=== PATIENT | female | born 1970 | race Caucasian/White ===

== ENCOUNTER 2018-01-03 17:55 | Emergency (ER) | payer OTHER ==
[~2018-01-03] VITALS: Ht 170.2 cm; Wt 94.8 kg
[~2018-01-03 17:55] MED LIST: ACETAMINOPHEN-1 EAC1 PO; CYCLOBENZAPRINE10 MG PO; EFFEXOR XR37.5 MG PO; HYDROCODON-ACE1 EA11 PO; IRON325 M1 PO; LEVOTHYROXINE25 MCG PO; LEVOTHYROXINE50 MCG PO; OXYCODONE HCL5 MG PO; VENLAFAXINE H37.5 MG PO; VITAMIN C500 M1 PO; XARELTO10 MG PO
[2018-01-03] MEDS ORDERED: PERCOCET 5-3251 EACH PO (19:44)
[2018-01-03] MEDS ORDERED: FLOMAX0.4 MG PO (19:44)
== END 2018-01-03 20:03 | disposition home or self-care (01) ==
LOC: ED 17:55
DX: N13.2 Hydronephrosis with renal and ureteral calculous obstruction (principal); E03.9 Hypothyroidism, unspecified; F41.9 Anxiety disorder, unspecified; Z88.2 Allergy status to sulfonamides; Z88.0 Allergy status to penicillin; Z79.899 Other long term (current) drug therapy
CPT/HCPCS: 74176; 80053; 81001; 85025; 96361; 96374; 96375; 99284; J1170; J2405; J7120

== ENCOUNTER 2019-03-31 09:00 | Day surgery (SDC) | payer OTHER ==
[~2019-03-31] VITALS: Ht 170.2 cm; Wt 81.7 kg
[~2019-03-31 09:00] MED LIST changes: +BIOTIN5000 MCG PO; +CITRACAL + D31 EACH PO; +CLEOCIN HCL300 MG PO; +FLINTSTONES WIT18 MG PO; +FLOMAX0.4 MG PO; +PERCOCET 5-3251 EACH PO; +PROBIOTIC1 EAC1 PO
[2019-03-31] MEDS ORDERED: NORCO 5-325 TA1 EACH PO (09:21)
--- NOTE | 2019-03-31 10:58 | NUR ---
03/31/19 Smith8 Angeline Gardner 1051-PATIENT ARRIVED TO PACU ON 10L MASK PLACED ON 6L RR EVEN. PATIENT AWAKE DROWSY DENIES PAIN OR NAUSEA. MOVING HANDS. IVF INFUSING. PATIENT DOZES BACK TO SLEEP. SR WITH PVCS.
--- NOTE | 2019-03-31 12:28 | OR ---
[facility] [address] [place], [place] [address] Signed DATE OF OPERATION: 03/31/2019 SURGEON: Galina Fontanez MD PREOPERATIVE DIAGNOSIS: Left gluteal abscess. POSTOPERATIVE DIAGNOSIS: Left gluteal abscess. PROCEDURE PERFORMED: 1. Exam under anesthesia. 2. Incision, drainage, left gluteal abscess. 3. Wound culture. ESTIMATED BLOOD LOSS: None. 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 She underwent her gastric sleeve procedure in 2018 with [facility]. She has lost about 90 pounds. She said she is feeling much better. The last 3-4 days, she has developed a painful lump to the left side of her anus out on the gluteal area. It has been increasing in size and pain and warmth. She went to her primary care provider. She was started on clindamycin and was asked to see me that same day. I had seen her yesterday in the office. It was very clear she had an area probably 3 cm maybe 4 cm in diameter that was quite indurated and warm and tender. No specific fluctuance at that point. I explained to Ginny, we needed to take her to the operating room the following day and we could examine her under anesthesia, particularly with respect to possible anal fistula. We have to open this skin and drain the abscess and take our wound cultures. It will be allowed to heal secondarily. She understands the nature of the surgery along with the risks including, but not limited to bleeding, infection, scarring, change in contour of the skin as well as recurrent abscesses in the same or other locations. She had expressed her understanding wished to proceed. DESCRIPTION OF PROCEDURE: I met with Ginny and her in our preop area. With our nurse in the room, then we were able to easily locate and agree on the abscessed area on the left gluteal buttock. There it was then marked appropriately. Ginny was then taken into the operating room Electronically Signed By: GALINA FONTANEZ MD 03/31/19 1228 PATIENT NAME: GINNY DEVLIN OPERATIVE REPORT DATE OF : 70 REPORT #: [id number] PHYSICIAN: GALINA FONTANEZ MD PCP: SHAHANA GOULD REPORT IS CONFIDENTIAL AND NOT TO BE RELEASED WITHOUT AUTHORIZATION [facility] [address] [place], [place] [address] Signed and placed under general endotracheal tube anesthesia in the prone gretchen-knife position. Appropriate padding and monitoring were placed. She was given preop antibiotics along with subcutaneous heparin. SCDs were utilized. She was then prepped and draped in the usual sterile fashion. We then did a careful digital rectal exam and I could not appreciate any extension of the abscess toward the anal canal, specifically the anterior posterior of midline. A Half-keys retractor was used to very carefully examined the full circumference of the dentate line and again, particularly the posterior and anterior midline. We applied pressure and no palpable fissure was noted, nor any pus around the dentate line. We felt this was all in the soft tissue out lateral to the anus at around the 3 o'clock position. After this, an elliptical incision was made in the skin and completely removed and sent off to the Pathology Department. Underneath was several mL of pus. This was cultured and passed off the field. The wound did tract somewhat laterally, so we opened that with a Pean clamp until the entire area was opened and all the pus was evacuated. The wound was irrigated and suctioned out until clear. Hemostasis was easily achieved with the cautery. Local anesthetic was copiously injected into the wound. We then packed the wound with a 4 x 4 Dakin's soaked gauze. This was covered with dry ABD and mesh underwear. Ginny was then rotated into the supine position on her hospital bed, awakened from her anesthesia, extubated in the OR, and taken to recovery room in stable condition. Galina Fontanez MD ALB/MODL /[id number] cc: TRISH Nguyễn MD Copies: SHAHANA GOULD ANDREW L MD ~ Electronically Signed By: GALINA FONTANEZ MD 03/31/19 1228 PATIENT NAME: GINNY DEVLIN OPERATIVE REPORT DATE OF : 70 REPORT #: [id number] PHYSICIAN: GALINA FONTANEZ MD PCP: SHAHANA GOULD REPORT IS CONFIDENTIAL AND NOT TO BE RELEASED WITHOUT AUTHORIZATION
--- NOTE | 2019-03-31 13:17 | NUR ---
LASHELL 1240: PT HAS MET ALL DC CRITERIA. SHE WOULD LIKE TO GO HOME AT THIS TIME. PT AND ARE GIVEN VERBAL DC INSTRUCTIONS. THEY BOTH VERBALIZE UNDERSTANDING. QUESTIONS ARE ASKED AND ANSWERED. PT IS EDUCATED ON HOW BEST TO DRESS HERSELF.
--- NOTE | 2019-03-31 13:19 | NUR ---
LE 1250: PT IS TAKE TO THE VEHICLE VIA WHEELCHAIR. SHE TRANSFERS HERSELF FROM WC TO VEHICLE.
--- NOTE | 2019-04-01 12:56 | PATH ---
[facility] [address] [place], [place] [address] Signed SPECIMEN(S): A GLUTEAL SPECIMEN SOURCE: A. GLUTEAL CLINICAL HISTORY: Left gluteal abscess. FINAL PATHOLOGIC DIAGNOSIS: Skin and subcutaneous tissue, left gluteal region, excision: - Dermal/subcutaneous abscess. COMMENT: There is an entrapped piece of benign squamous mucosa. The lesion her may possibly represent a ruptured epidermal inclusion cyst with abscess formation. LJA:cml:C2NR MICROSCOPIC EXAMINATION: Histologic sections of all submitted blocks are examined by light microscopy. These findings, together with the gross examination, support the pathologic diagnosis. GROSS DESCRIPTION: The specimen, labeled "TH, skin from left gluteal abscess," is received in formalin and consists of a 2.5 x 1.5 x 1.0 cm unoriented skin excision. The epidermis is barron-pink and unremarkable. Sectioning shows barron-yellow cut surfaces with focal areas of hemorrhage and a 0.8 cm hemorrhagic cyst in the subcutaneous tissue. No other discrete lesion is identified. [employer] Server sections are submitted in cassette (A1). AR (under the direct supervision of a pathologist) The Gross Description was prepared using a voice recognition system. The report was reviewed for accuracy; however, sound-alike word errors, addition and/or deletions may occur. If there is any question about this report, please contact Client Services. PERFORMING LABORATORY: The technical component was performed by [employer], [address] [place] [address] (Loan Servicing Officer: Jany Braswell MD; CLIA# [id number]). [facility], [address] [facility], [place]. 107, PATIENT NAME: MADHU DEVLIN PATHOLOGY DATE OF : 70 REPORT #: [id number] PHYSICIAN: OPAL PATHOLOGY PCP: SHAHANA GOULD REPORT IS CONFIDENTIAL AND NOT TO BE RELEASED WITHOUT AUTHORIZATION [facility] [address] [place], [place] [address] Signed [place] [address] (Loan Servicing Officer: Omari Mares MD; CLIA# [id number]). Diagnostician: Omari Mares MD Pathologist Electronically Signed 04/01/2019 Copies: ~ PATIENT NAME: MADHU DEVLIN PATHOLOGY DATE OF : 70 REPORT #: [id number] PHYSICIAN: OPAL PATHOLOGY PCP: SHAHANA GOULD REPORT IS CONFIDENTIAL AND NOT TO BE RELEASED WITHOUT AUTHORIZATION
== END 2019-03-31 12:50 | disposition home or self-care (01) ==
LOC: DS 09:00 → OPS 09:00 → DS 12:00 → OPS 12:50
PROVIDERS: Colon & Rectal Surgery
PROC: 0J990ZZ Drainage of Buttock Subcutaneous Tissue and Fascia, Open Approach (ICD-10-PCS; principal; 2019-03-31 12:00)
DX: L02.31 Cutaneous abscess of buttock (principal); E03.9 Hypothyroidism, unspecified; D50.9 Iron deficiency anemia, unspecified; Z88.0 Allergy status to penicillin; Z88.2 Allergy status to sulfonamides; Z79.899 Other long term (current) drug therapy; Z98.84 Bariatric surgery status
CPT/HCPCS: 00400; J0330; J1100; J1644; J1885; J2250; J2405; J2704; J2765; J3010; J7120

== ENCOUNTER 2021-07-30 11:52 | Day surgery (SDC) | payer OTHER ==
[~2021-07-30] VITALS: Ht 170.2 cm; Wt 80.0 kg
[~2021-07-30 11:52] MED LIST changes: +EUTHYROX100 MCG PO; +NORCO 5-325 TA1 EACH PO; +TRIPLE HELIX CO10 GM TOP
--- NOTE | 2021-07-30 13:45 | NUR ---
07/30/21 1344 Loyda Bob 1343 PATIENT ARRIVES TO PACU AWAKE. DENIES PAIN OR NAUSEA. RESP EVEN AND UNLABORED, NC AT 2 LITERS, TURNED OFF ON ARRIVAL TO PACU.
--- NOTE | 2021-07-31 14:44 | OR ---
[facility] [facility] [address] [place], [place] [address] Signed DATE OF OPERATION: 07/30/2021 SURGEON: Mika Lamb MD PREOPERATIVE DIAGNOSIS: History of gastric sleeve resection ([facility], Dr. Froilan Larkin). POSTOPERATIVE DIAGNOSES: 1. Typical anatomy of gastric sleeve resection. 2. Pre-pyloric small ulcer; CLOtest, currently asymptomatic. PROCEDURE: Esophagogastroduodenoscopy with biopsy. ANESTHESIA: Intravenous sedation; fentanyl 100 mcg and Versed 5 mg. INDICATION: This 51-year-old white woman is a patient of Shahana Tom and underwent gastric sleeve resection as a bariatric method at [facility] 3 years ago. She went from 288 pounds to 185 pounds and maintains that weight loss. She is generally symptom free. She was recommended to undergo surveillance upper endoscopy by her surgeon, Dr. Froilan Larkin and that is the purpose for her evaluation at this time. I am familiar with the patient from the past having performed left saphenous vein stab phlebectomy in 2003 as well as cholecystectomy in 1995. She is admitted at this time to undergo upper endoscopy as surveillance regarding the sleeve resection, understands the risks of bleeding, infection, and perforation. FINDINGS: Typical gastric sleeve resection anatomy was noted with a tubular-appearing stomach overall. The esophagus appeared entirely normal. There was a small hiatal hernia, but no resultant esophagitis. The duodenum was normal. There was a small pre-pyloric ulcer, very shallow and not very large. Biopsies were taken of it and surrounding tissue and CLOtest biopsy also performed (currently negative). DESCRIPTION OF PROCEDURE: The patient was brought to the endoscopy suite, given topical lidocaine hypopharyngeal spray anesthesia. She was placed in lateral decubitus position, given intravenous sedation to a point of slurred speech and nystagmus with full cardiopulmonary Electronically Signed By: MIKA LAMB MD 07/31/21 1444 PATIENT NAME: MADHU DEVLIN OPERATIVE REPORT DATE OF : 70 REPORT #: [id number] PHYSICIAN: MIKA LAMB MD PCP: SHAHANA TOM REPORT IS CONFIDENTIAL AND NOT TO BE RELEASED WITHOUT AUTHORIZATION [facility] [address] [place], [place] [address] Signed monitoring. A bite block was placed. An Olympus video upper endoscope was passed in the hypopharynx. Vocal cords were visualized and found to be normal. The scope was easily passed into the esophagus and throughout its length, it was normal. Scope entered stomach and typical anatomy of a gastric sleeve resection was noted including a tubular-shaped stomach. Upon approaching the pylorus, there was a small white-based ulcer that was not very deep at all. The pylorus itself was not deformed. Scope was passed through the pylorus into the duodenum. The bulbar 2nd 3rd and 4th portions were normal. Biopsies were taken of the distal duodenum to assess for celiac disease. The scope was withdrawn and biopsies then taken of the ulcer itself in the pre-pyloric region as well as several other biopsies in the pre-pyloric antrum. CLOtest biopsies were taken as well. The scope was withdrawn and retroflex view showed a somewhat poor flap valve suggestive of small hiatal hernia. The scope was straightened withdrawn and biopsies were taken of the normal-appearing mucosa of the esophagus. Midesophageal biopsies were also obtained. The scope was further withdrawn. There were no other findings of concern. The patient was taken to recovery room in good condition. CONCLUDING DIAGNOSES: 1. Clinically successful gastric sleeve resection. 2. Small pre-pyloric ulceration, asymptomatic. PLAN: We will treat with PPI medication for 8 weeks and evaluate the patient in a few weeks as well. We will be watching to assure there is no H. pylori associated with the biopsies or the CLOtest as it evolves. MD CAROLE Kessler/TIARRAL /[id number] cc: Dr. Froilan Larkin [facility] TRISH Nguyễn Electronically Signed By: MIKA LAMB MD 07/31/21 1444 PATIENT NAME: MADHU DEVLIN OPERATIVE REPORT DATE OF : 70 REPORT #: [id number] PHYSICIAN: MIKA LAMB MD PCP: SHAHANA TOM REPORT IS CONFIDENTIAL AND NOT TO BE RELEASED WITHOUT AUTHORIZATION [facility] [address] [place], [place] [address] Signed Copies: SHAHANA TOM ~ Electronically Signed By: MIKA LAMB MD 07/31/21 1444 PATIENT NAME: MADHU DEVLIN OPERATIVE REPORT DATE OF : 70 REPORT #: [id number] PHYSICIAN: MIKA LAMB MD PCP: SHAHANA TOM REPORT IS CONFIDENTIAL AND NOT TO BE RELEASED WITHOUT AUTHORIZATION
--- NOTE | 2021-08-01 14:27 | PATH ---
[facility] [place] [facility] [address] [place], [place] [address] Signed SPECIMEN(S): A DISTAL DUODENAL BIOPSY SPECIMEN(S): B PROXIMAL ANTRUM/PYLORUS BIOPSY ULCER SPECIMEN(S): C ANTRUM/PYLORUS BIOPSY SPECIMEN(S): D DISTAL ESOPHAGEAL BIOPSY SPECIMEN(S): E MID ESOPHAGEAL BIOPSY SPECIMEN SOURCE: A. DISTAL DUODENAL BIOPSY B. PROXIMAL ANTRUM/PYLORUS BIOPSY ULCER C. ANTRUM/PYLORUS BIOPSY D. DISTAL ESOPHAGEAL BIOPSY E. MID ESOPHAGEAL BIOPSY CLINICAL HISTORY: No preop or clinical information is given on requisition. FINAL PATHOLOGIC DIAGNOSIS: A. Duodenum, distal, biopsy: - Duodenal mucosa with no histopathologic abnormality. - Negative for increased intraepithelial lymphocytes or villous blunting. - Negative for dysplasia or malignancy. B. Stomach, proximal antrum/pylorus ulcer, biopsy: - Antral mucosa with reactive gastropathy and chronic, active gastritis. - Negative for Helicobacter organisms on HE stain, see Comment. - Negative for dysplasia or malignancy. C. Antrum/pylorus, biopsy: - Antral mucosa with chronic, focally active gastritis. - Negative for Helicobacter organisms on HE stain. - Negative for dysplasia or malignancy. D. Distal esophagus, biopsy: - Squamous mucosa with mild reactive changes. - Negative for intestinal metaplasia, dysplasia, or malignancy. E. Esophagus, mid, biopsy: - Squamous mucosa with no histopathologic abnormality. - Negative for increased intraepithelial eosinophils. - Negative for intestinal metaplasia, dysplasia or malignancy. COMMENT: An H. pylori immunohistochemical stain (with appropriately staining controls) has been ordered on the proximal antral/pylorus stomach biopsy (specimen B) and the results will be reported in an PATIENT NAME: GINNY DEVLIN PATHOLOGY DATE OF : 70 REPORT #: [id number] PHYSICIAN: OPAL COHN PCP: SHAHANA GOULD REPORT IS CONFIDENTIAL AND NOT TO BE RELEASED WITHOUT AUTHORIZATION [facility] [place] [facility] [address] [place], [place] [address] Signed addendum. NAL:cml:C2NR MICROSCOPIC EXAMINATION: Histologic sections of all submitted blocks are examined by light microscopy. These findings, together with the gross examination, support the pathologic diagnosis. GROSS DESCRIPTION: Five specimens are received in five containers, labeled "Ginny Devlin." A. The specimen, labeled "Ginny Devlin, #1," and designated on the requisition "distal duodenum biopsy," is received in formalin and consists of two barron soft tissue fragments that measure 0.3 and 0.4 cm in greatest dimension. The specimen is entirely submitted in cassette (A1). B. The specimen, labeled "Ginny Devlin, #2," and designated on the requisition "proximal antrum/pylorus ulcer biopsy," is received in formalin and consists of one barron soft tissue fragment that measures 0.4 cm in greatest dimension. The specimen is entirely submitted in cassette (B1). C. The specimen, labeled "Ginny Devlin, #3," and designated on the requisition "antrum/pylorus biopsy," is received in formalin and consists of three barron soft tissue fragments that measure 0.2 to 0.4 cm in greatest dimension. The specimen is entirely submitted in cassette (C1). D. The specimen, labeled "Ginny Devlin, #4," and designated on the requisition "distal esophagus biopsy," is received in formalin and consists of two white-barron soft tissue fragments that measure 0.2 and 0.3 cm in greatest dimension. The specimen is entirely submitted in cassette (D1). E. The specimen, labeled "Ginny Devlin, #5," and designated on the requisition "mid esophagus biopsy," is received in formalin and consists of two white-barron soft tissue fragments that measure 0.3 and 0.3 cm in greatest dimension. The specimen is entirely submitted in cassette (E1). FB (under the direct supervision of a pathologist) The Gross Description was prepared using a voice recognition system. The report was reviewed for accuracy; however, sound-alike word errors, addition and/or deletions may occur. If there is any question about this report, please contact Client Services. PATIENT NAME: GINNY DEVLIN PATHOLOGY DATE OF : 70 REPORT #: [id number] PHYSICIAN: OPAL COHN PCP: SHAHANA GOULD REPORT IS CONFIDENTIAL AND NOT TO BE RELEASED WITHOUT AUTHORIZATION [facility] [place] [facility] [address] [place] [id number] Signed PERFORMING LABORATORY: The technical component was performed by [employer], [address] [place] [id number] (Geriatric Care Manager: Jany Braswell MD; CLIA# [id number]). Professional interpretation was performed by [employer], [facility], [address] [address] (CLIA# [id number]). Diagnostician: Kerri Monreal MD Pathologist Electronically Signed 08/01/2021 Copies: ~ PATIENT NAME: GINNY DEVLIN PATHOLOGY DATE OF : 70 REPORT #: [id number] PHYSICIAN: OPAL PATHOLOGY PCP: SHAHANA GOULD REPORT IS CONFIDENTIAL AND NOT TO BE RELEASED WITHOUT AUTHORIZATION
== END 2021-07-30 18:00 | disposition home or self-care (01) ==
LOC: OPS 11:52 → DS 11:54 → OPS 13:00 → DS 13:00 → OPS 18:00
PROVIDERS: ATTEND Surgery
PROC: 0DB78ZZ Excision of Stomach, Pylorus, Via Natural or Artificial Opening Endoscopic (ICD-10-PCS; principal; 2021-07-30 13:00)
DX: Z09 Encounter for follow-up examination after completed treatment for conditions other than malignant neoplasm (principal); K25.9 Gastric ulcer, unspecified as acute or chronic, without hemorrhage or perforation; K29.50 Unspecified chronic gastritis without bleeding; K44.9 Diaphragmatic hernia without obstruction or gangrene; Z90.3 Acquired absence of stomach [part of]; Z96.651 Presence of right artificial knee joint
CPT/HCPCS: 99153; G0500; J2250; J3010; J7121

== ENCOUNTER 2022-01-14 06:29 | Day surgery (SDC) | payer OTHER ==
[~2022-01-14] VITALS: Ht 165.1 cm; Wt 80.5 kg
[2022-01-14] MEDS ORDERED: B COMPLEX1 EACH PO (06:44)
--- NOTE | 2022-01-17 08:03 | PATH ---
[facility] [address] [place], [place] [address] Signed SPECIMEN(S): A DUODENAL BIOPSY SPECIMEN(S): B ANTRUM/ANTRAL BIOPSY SPECIMEN(S): C PROXIMAL STOMACH BIOPSY SPECIMEN(S): D DISTAL ESOPHAGEAL BIOPSY SPECIMEN SOURCE: A. DUODENAL BIOPSY B. ANTRUM/ANTRAL BIOPSY C. PROXIMAL STOMACH BIOPSY D. DISTAL ESOPHAGEAL BIOPSY CLINICAL HISTORY: History of prepyloric ulcer. Postop diagnosis: Chronic gastritis FINAL PATHOLOGIC DIAGNOSIS: A. Duodenum, biopsy: - Duodenal mucosa with Lucy's glands hyperplasia. - Negative for increased intraepithelial lymphocytes or villous blunting. - Negative for dysplasia or malignancy. B. Stomach, antrum, biopsy: - Antral mucosa with chronic, focally active gastritis and reactive gastropathy. - Negative for Helicobacter organisms (HE and IHC). - Negative for dysplasia or malignancy. C. Stomach, proximal, biopsy: - Atrophic antral-type mucosa with chronic, active gastritis, intestinal metaplasia, and pancreatic acinar metaplasia, see comment. - Negative for Helicobacter organisms on HE stain. - Negative for dysplasia or malignancy. D. Esophagus, distal, biopsy: - Squamous mucosa with mild chronic inflammation and reactive epithelial changes. - Negative for intestinal metaplasia, dysplasia, or malignancy. COMMENT: Regarding specimen B: An H. pylori immunohistochemical stain (with appropriately staining controls) is negative for Helicobacter organisms. Regarding specimen C: Sections demonstrate gastric mucosa with antral type glands, focal complete intestinal metaplasia, and pancreatic acinar metaplasia. There is a background of chronic and acute inflammation. 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 Correlation with anti-parietal and anti-intrinsic factor antibodies as well as vitamin B12 levels is recommended. Part C of this case was reviewed in consultation with another member of our pathology staff. NAL:cml:C2NR MICROSCOPIC EXAMINATION: Histologic sections of all submitted blocks are examined by light microscopy. These findings, together with the gross examination, support the pathologic diagnosis. GROSS DESCRIPTION: Four specimens are received in four containers, labeled "TH." A. The specimen, labeled "TH, 1," and designated on the requisition "duodenum biopsy," is received in formalin and consists of two barron soft tissue fragments that measure 0.3 and 0.4 cm in greatest dimension. The specimen is entirely submitted in cassette (A1). B. The specimen, labeled "TH, 2," and designated on the requisition "antrum biopsy," is received in formalin and consists of two barron soft tissue fragments that measure 0.2 and 0.4 cm in greatest dimension. The specimen is entirely submitted in cassette (B1). C. The specimen, labeled "TH, 3," and designated on the requisition "proximal stomach biopsy," is received in formalin and consists of two red freckled barron soft tissue fragments that measure 0.2 and 0.3 cm in greatest dimension. The specimen is entirely submitted in cassette (C1). D. The specimen, labeled "TH, 4," and designated on the requisition "distal esophagus," is received in formalin and consists of one elongated, barron-white soft tissue fragment that measures 0.7 cm in greatest dimension. The specimen is entirely submitted in cassette (D1). AI (under the direct supervision of a pathologist) The Gross Description was prepared using a voice recognition system. The report was reviewed for accuracy; however, sound-alike word errors, addition and/or deletions may occur. If there is any question about this report, please contact Client Services. PERFORMING LABORATORY: The technical component was performed by [employer] [address] (CLIA# [id number]). [facility] PATIENT NAME: MADHU DEVLIN PATHOLOGY DATE OF : 70 REPORT #: [id number] PHYSICIAN: OPAL COHN PCP: SHAHANA GOULD REPORT IS CONFIDENTIAL AND NOT TO BE RELEASED WITHOUT AUTHORIZATION [facility] [address] [place], [place] [address] Signed [place], [address] [address] (CLIA# [id number]). Diagnostician: Kerri Monreal MD Pathologist Electronically Signed 01/17/2022 Copies: ~ PATIENT NAME: MADHU DEVLIN PATHOLOGY DATE OF : 70 REPORT #: [id number] PHYSICIAN: OPAL PATHOLOGY PCP: SHAHANA GOULD REPORT IS CONFIDENTIAL AND NOT TO BE RELEASED WITHOUT AUTHORIZATION
--- NOTE | 2022-01-18 14:15 | OR ---
[facility] [address], [place] [address] Signed DATE OF OPERATION: 01/14/2022 SURGEON: Mika Lamb MD PREOPERATIVE DIAGNOSES: 1. History of pre-pyloric ulcer, July of 2021. 2. History of bariatric procedure (gastric sleeve resection). POSTOPERATIVE DIAGNOSIS: Proximal gastritis without evidence of ulceration. PROCEDURE: Esophagogastroduodenoscopy with biopsy. ANESTHESIA: Intravenous sedation, fentanyl 100 mcg and Versed 4 mg. INDICATION: This 51-year-old white woman is a patient Dr. Shell Warren and TR[facility] Nguyễn and known to me from the past having undergone upper endoscopy in July of 2021 showing a pre-pyloric ulcer. This was shallow and not large. She has a history of gastric sleeve resection for obesity and has lost a considerable amount of weight from it. She has been on Prilosec for treatment. She has no symptoms of epigastric pain, dysphagia, hematemesis, or other issue and is doing quite well. Indeed, she is planning a vacation to [place] this coming week. She is here for evaluation of her stomach to assess resolution of the ulcer and other findings that may be found. She understands risk of bleeding, infection, and perforation and wished to proceed. FINDINGS: The ulcer was resolved. There was good patency to the GE junction and pylorus. There was mild proximal gastritis. CLOtest was negative. There were no other findings of concern. DESCRIPTION OF PROCEDURE: The patient was brought to the endoscopy suite and placed in lateral decubitus position, given intravenous sedation to the point of slurred speech and nystagmus after undergoing topical Hurricaine spray hypopharyngeal anesthesia. Ancef 2 g had been given prior to operation based on bilateral total knee replacement. A bite block was placed. An Olympus video upper endoscope was passed in the hypopharynx. The vocal cords appeared normal. Scope was advanced to the esophagus without problem, throughout its length it Electronically Signed By: MIKA LAMB MD 01/18/22 1415 PATIENT NAME: MADHU DEVLIN OPERATIVE REPORT DATE OF : 70 REPORT #: [id number] PHYSICIAN: MIKA LAMB MD PCP: SHAHANA GOULD REPORT IS CONFIDENTIAL AND NOT TO BE RELEASED WITHOUT AUTHORIZATION [facility] [address], [place] [address] Signed appeared normal. The scope was advanced to the stomach and a tubular appearing stomach was noted consistent with bariatric surgical operation anatomy (sleeve resection). The pylorus was normal. Scope was passed through into the duodenum, which was normal. Biopsies were taken of the duodenum. The scope was withdrawn and biopsies taken of the antral part of the stomach for both SONIA and pathologic testing. Further withdrawal and retroflexed view of the upper stomach showed mild chronic gastritis. There was no sign of ulceration or neoplasm. Biopsies were taken of the upper stomach. The scope was withdrawn and biopsy was then taken of the normal-appearing GE junction. The remaining esophagus was normal. Narrow band imaging showed no sign of worrisome lesion. The scope was removed and the patient was taken to the recovery room in good condition. It was verified that the patient continues to take Prilosec on a daily basis. Given the ongoing proximal gastritis, continued use of that would be recommended. ASSESSMENT: Proximal gastritis without sign of distal antral ulceration. No evidence of H pylori. PLAN: Continue PPI medication for the time being. She will return to the ongoing care of Dr. Warren and TR[facility] Nguy[facility]n. I am happy to see her again should the need arise. No scheduled plan will be maintained at this time. I will review her pathology report. If there are adverse findings, we will make that known to her. MD CAROLE Kessler/MONTSE /[id number] cc: MD Shahana Naik PA Copies: SHELL WARREN MD Electronically Signed By: MIKA LAMB MD 01/18/22 1415 PATIENT NAME: MADHU DEVLIN OPERATIVE REPORT DATE OF : 70 REPORT #: [id number] PHYSICIAN: MIKA LAMB MD PCP: SHAHANA GOULD REPORT IS CONFIDENTIAL AND NOT TO BE RELEASED WITHOUT AUTHORIZATION [facility] [address], [place] [address] Signed SHAHANA GOULD ~ Electronically Signed By: MIKA LAMB MD 01/18/22 1415 PATIENT NAME: MADHU DEVLIN OPERATIVE REPORT DATE OF : 70 REPORT #: [id number] PHYSICIAN: MIKA LAMB MD PCP: SHAHANA GOULD REPORT IS CONFIDENTIAL AND NOT TO BE RELEASED WITHOUT AUTHORIZATION
== END 2022-01-14 08:34 | disposition home or self-care (01) ==
LOC: OPS 06:29 → DS 06:29 → OPS 07:30
PROVIDERS: ATTEND Surgery
PROC: 0DB68ZX Excision of Stomach, Via Natural or Artificial Opening Endoscopic, Diagnostic (ICD-10-PCS; 2022-01-14)
PROC: 0DB58ZX Excision of Esophagus, Via Natural or Artificial Opening Endoscopic, Diagnostic (ICD-10-PCS; 2022-01-14)
PROC: 0DB98ZX Excision of Duodenum, Via Natural or Artificial Opening Endoscopic, Diagnostic (ICD-10-PCS; principal; 2022-01-14 07:30)
DX: K29.50 Unspecified chronic gastritis without bleeding (principal); K20.90 Esophagitis, unspecified without bleeding; E03.9 Hypothyroidism, unspecified; Z98.84 Bariatric surgery status; Z87.11 Personal history of peptic ulcer disease; Z88.0 Allergy status to penicillin; Z88.2 Allergy status to sulfonamides; Z90.49 Acquired absence of other specified parts of digestive tract
CPT/HCPCS: 99153; G0500; J0690; J2250; J3010; J7121

== ENCOUNTER 2023-02-04 08:17 | Day surgery (SDC) | payer OTHER ==
--- NOTE | 2023-02-03 08:13 | NUR ---
PHONE CALL TO PT REGARDING PHONE PRE ADMIT, NO ANSWER LEFT MESSAGE.
[~2023-02-04] VITALS: Ht 165.1 cm; Wt 84.1 kg
[~2023-02-04 08:17] MED LIST changes: +B COMPLEX1 EACH PO
[2023-02-04 08:44] VITALS: BP 134/86
--- NOTE | 2023-02-04 13:01 | NUR ---
02/04/23 1301 Angeline Gardner 5380-PATIENT ARRIVED TO PACU ON 6L MASK NONAROUSABLE RR EVEN. SR. IVF INFUSING. LEFT LEG ELEVATED ON PILLOWS AND ELEVATED ABOVE HEART. GOOD CAP REFILL WARMTH AND PALPABLE PEDAL PULSE. DRESSING CDI.
[2023-02-04] MEDS ORDERED: ACETAMINOPHEN500 MG PO (13:20)
[2023-02-04] MEDS ORDERED: OXYCODON-ACETA1 EAC2 PO (13:20)
[2023-02-04] MEDS ORDERED: IBUPROFEN600 MG PO (13:20)
[2023-02-04 13:42] VITALS: BP 138/79
--- NOTE | 2023-02-04 14:34 | NUR ---
LE 1335 PATIENT INTO ROOM 12. VITAL SIGNS COMPLETE. REPORT RECIEVED FROM URBANO EAGLE. PATIENT ALERT AND ORIENTED. BREATHING EQUAL AND UNLABORED. OXYGEN SATURATIONS ABOVE 90% ON ROOM AIR. PATIENT PAIN IS ABOUT A 4/10. PATIENT DENIES BEING NAUSEATED. CMST INTACT ON LLE. DRESSING CLEAN, DRY AND INTACT. IVF INFUSING. SCD'S ON. WATER AND JELLO GIVEN. CALL LIGHT WITHIN REACH NO FUTHER NEEDS. NO QUESTIONS. LE 1350 PATIENT UP TO THE COMMODE. PATIENT VOIDED 300 MLS OF CLEAR AND YELLOW URINE. PATIENT BACK TO BED. LLE ELEVATED WITH PILLOWS ABOVE THE HEART. SURGICAL DRESSING CLEAN, DRY AND INTACT. CALL LIGHT WITHIN REACH NO FUTHER NEEDS. NO QUESTIONS AT THIS TIME.
--- NOTE | 2023-02-04 14:39 | NUR ---
LE 1416 PRN PAIN MEDICINE GIVEN. CALL LIGHT WITHIN REACH NO FUTHER NEEDS. NO QUESTIONS AT THIS TIME.
[2023-02-04 14:46] VITALS: BP 125/83
--- NOTE | 2023-02-04 15:10 | NUR ---
LE 1500 PATIENT ALERT AND ORIENTED. BREATHING EQUAL AND UNLABORED. OXYGEN SATURATIONS ABOVE 90% ON ROOM AIR. PATIENT PAIN IS A 2/10 AND TOLERABLE. DENIES BEING NAUSEATED. CMST INTACT ON LLE. SURGICAL DRESSING CLEAN, DRY AND INTACT. PATIENT LLE ELEVATED ABOVE HEART. PATIENT HAS MET DISCHARGE CRITERIA. PATIENT DRESSED SELF IN BED. PATIENT IV D/C'D WNL. PATIENT GIVEN DISCHARGE INSTRUCTIONS AND UNDERSTOOD. PATIENT WHEELED OUT OF FACILITY TO CAR WITH MOTHER NO FUTHER NEEDS.
--- NOTE | 2023-02-05 15:26 | NUR ---
PT ASKS WHEN DRESSING CAN BE REMOVED DURING CALL BACK PHONE CALL. PER DR. LAMB'S INSTRUCTION, PT NOTIFIED TO KEEP IN PLACE UNTIL FOLLOW UP APPOINTMENT. PT STATES THAT FOLLOW UP IS ON FRIDAY AND ASKS IF SHE CAN PROTECT DRESSING WITH GARBAGE BAG AND SHOWER. PT ADVISED TO KEEP DRESSING CDI. NO OTHER QUESTIONS AT THIS TIME.
--- NOTE | 2023-02-06 18:00 | OR ---
[facility] [address] [place], [place] [address] Signed DATE OF OPERATION: 02/04/2023 SURGEON: Mika Lamb MD PREOPERATIVE DIAGNOSIS: Symptomatic left lesser saphenous vein varicosities. POSTOPERATIVE DIAGNOSIS: Symptomatic left lesser saphenous vein varicosities. PROCEDURE: Excision of left lesser saphenous vein varicosities by stab avulsion technique with subfascial ligation. ANESTHESIA: General, LMA; Javon Rodgers CRNA and 10 mL of 0.25% Marcaine with epinephrine. INDICATION: This 52-year-old white woman is a patient of TRISH Nguy[facility]n. She is known to me from the past having undergone right-sided varicose vein treatment a number of years ago in 2003. This was of the greater saphenous vein including some fascial ligation and excision in 2003. She has had a good and durable result. She has in the meantime developed extensive serpiginous lesser saphenous veins in the left posterior calf area consistent with lesser saphenous vein varicosities. She has no associated ulceration. Her vein diameter is at least 10 mm in most of the area. 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 She is aware of various approaches to the varicose vein management, but wishes to undergo that, which was satisfactory for her in the past including stab avulsion excision of the symptomatic varicose veins of the left lesser saphenous system. The risk of bleeding, infection, neurologic injury including numbness and of course recurrence were all reviewed in detail. She understands and wished to proceed. FINDINGS: Very bulky varicosities were noted. Complete excision was undertaken. Those areas marked preoperatively. There were no complications. PROCEDURE IN DETAIL: Electronically Signed By: MIKA LAMB MD 02/06/23 [facility] PATIENT NAME: MADHU DEVLIN OPERATIVE REPORT DATE OF : 70 REPORT #: [id number] PHYSICIAN: MIKA LAMB MD PCP: SHAHANA OGULD REPORT IS CONFIDENTIAL AND NOT TO BE RELEASED WITHOUT AUTHORIZATION [facility] [address] [place], [place] [address] Signed The patient was brought to the operating room and given a general LMA type anesthetic. Preoperative antibiotic Ancef was given. Sequential compression device stocking were applied to the right lower extremity and heparin subcutaneously administered. She was placed in the lateral position exposing well the left leg, which had been marked in the preoperative area, the area of extensive varicosities in the posterior lower leg. Sterile preparation was undertaken with a Betadine spray solution and everything was sterilely draped. Beginning at the popliteal space, transverse incision was made over an area considered the dominant vein which of course was minimally obvious at this point, as she was no longer standing. Dissection was carried through the dermis sharply with a 15 blade identifying the bulky saphenous vein. Saphenous vein was dissected free with blunt dissection using mosquito hemostats, elevated and proximal and distal ends secured. Multiple stab incisions were made in the posterior aspect of the leg allowing for delivery of segment of vein as appropriate, ligating them as appropriate with 3-0 Vicryl suture. Perforating branches were similarly secured and ligated. Complete excision of the lesser saphenous vein which was markedly very close in appearance was undertaken distally. 10 mL of 0.25% Marcaine with epinephrine was injected locally. The skin was closed with interrupted 4-0 Vicryl and Steri-Strips were applied. Subsequently, fluff gauze, a Kerlix and ultimately a snug Zhou wrap were applied to the area and leg elevation maintained. She was ultimately returned to the supine position more fully and taken to the recovery room in good condition with the leg elevated. Blood loss was 20 mL or less. Sponge, needle, and instrument counts were reported as correct x3. MD CAROLE Kessler/MODL /[id number] cc: TRISH Nguyễn Electronically Signed By: MIKA LAMB MD 02/06/23 [facility] PATIENT NAME: MADHU DEVLIN OPERATIVE REPORT DATE OF : 70 REPORT #: [id number] PHYSICIAN: MIKA LAMB MD PCP: SHAHANA GOULD REPORT IS CONFIDENTIAL AND NOT TO BE RELEASED WITHOUT AUTHORIZATION [facility] [address] [place] [address] [place] [address] Signed Copies: SHAHANA GOULD ~ Electronically Signed By: MIKA LAMB MD 02/06/23 1800 PATIENT NAME: MADHU DEVLIN OPERATIVE REPORT DATE OF : 70 REPORT #: [id number] PHYSICIAN: MIKA LAMB MD PCP: SHAHANA GOULD REPORT IS CONFIDENTIAL AND NOT TO BE RELEASED WITHOUT AUTHORIZATION
--- NOTE | 2023-02-10 18:52 | PATH ---
[facility] [address] [facility] [place], [place] [address] Signed SPECIMEN(S): A LEFT LESSER SAPHENOUS VEIN SPECIMEN SOURCE: A. LEFT LESSER SAPHENOUS VEIN CLINICAL HISTORY: Varicose vein stab phlebectomy FINAL PATHOLOGIC DIAGNOSIS: Blood vein, left lesser saphenous, varicose vein stab phlebectomy: - Multiple portions of blood vein with attached adipose tissue and blood clot. - Negative for inflammation, atypia, and malignancy. SDL MICROSCOPIC EXAMINATION: Histologic sections of all submitted blocks are examined by light microscopy. These findings, together with the gross examination, support the pathologic diagnosis. SDL GROSS DESCRIPTION: The specimen, labeled and designated "Kieran, left lesser saphenous vein," is received in formalin and consists of several pieces of cylindrical shaped fibromembranous tissue fragments that aggregate measure 25 cm in length and 0.2 to 0.5 cm in diameter. The outside surface is violaceous and focally congested. Sectioning through the specimen to reveal a lumen that varies in diameter from 0.1 to 0.2 cm. The lumen is partially filled with coagulated blood. Nerve Specialist sections are submitted in (A1). JS (under the direct supervision of a pathologist) The Gross Description was prepared using a voice recognition system. The report was reviewed for accuracy; however, sound-alike word errors, addition and/or deletions may occur. If there are any questions about this report, please contact Client Services. PERFORMING LABORATORY: Technical component was performed by [facility], [address] [place] [id number] (CLIA# [id number]). Professional interpretation was performed by [facility] - [facility], [address] [place] [id number] (CLIA#: [id number]). PATIENT NAME: MADHU DEVLIN PATHOLOGY DATE OF : 70 REPORT #: [id number] PHYSICIAN: [facility] PCP: SHAHANA GOULD REPORT IS CONFIDENTIAL AND NOT TO BE RELEASED WITHOUT AUTHORIZATION [address] [place] [address] Signed Diagnostician: Moni Staley MD Pathologist Electronically Signed 02/10/2023 Copies: ~ PATIENT NAME: MADHU DEVLIN PATHOLOGY DATE OF : 70 REPORT #: [id number] PHYSICIAN: [facility] PCP: SHAHANA GOULD REPORT IS CONFIDENTIAL AND NOT TO BE RELEASED WITHOUT AUTHORIZATION
== END 2023-02-04 15:00 | disposition home or self-care (01) ==
LOC: DS 08:17
PROVIDERS: ATTEND Surgery
PROC: 06BQ0ZZ Excision of Left Saphenous Vein, Open Approach (ICD-10-PCS; principal; 2023-02-04 11:30)
DX: I83.812 Varicose veins of left lower extremity with pain (principal); Z96.659 Presence of unspecified artificial knee joint; Z87.11 Personal history of peptic ulcer disease; Z90.49 Acquired absence of other specified parts of digestive tract; Z98.84 Bariatric surgery status; Z88.2 Allergy status to sulfonamides; Z88.0 Allergy status to penicillin
CPT/HCPCS: 01430; J0131; J0690; J1100; J1644; J1885; J2405; J2704; J3010; J7121